=== PATIENT | female | born 1930 | race Caucasian/White ===

== ENCOUNTER → 2016-10-10 | Outpatient (CLI) | payer MEDICARE, MEDICAID ==
[~2016-10-10] MED LIST: ACTOS 15MG TAB15 MG PO; ACTOS30 MG PO; ALBUTEROL0.83 MG/ML IH; ALDACTONE 25MG25 MG PO; ALDACTONE50 MG PO; ALLEGRA180 MG PO; AMIODARONE200 MG PO; ARICEPT10 MG PO; ARICEPT5 MG PO; ARTANE2 MG PO; ASPIRIN E.C. 8181 MG PO; BENEPROTEIN PO; CALAN SR240 MG PO; CALCITRIOL PO; COLACE 100100 MG/CAP PO; COREG3.125 MG PO; COUMADIN 1MG1 MG/TAB PO; COUMADIN 22.5 MG/TAB PO; COUMADIN 2MG2 MG/TAB PO; COUMADIN 3MG3 MG/TAB PO; COUMADIN1 MG PO; DESYREL 50MG50 MG PO; DESYREL DIVIDO300 MG PO; DESYREL PO; DOXYCYCLINE 10100 MG PO; EPO IV; EXELON PAT4.6 MG/24 TD; FERROUS SU325 MG/TAB PO; FOLIC ACID 11 MG/TA1 PO; FOLIC ACID PO; FOLIC ACID1 MG PO; FUROSEMIDE PO; IMODIUMSUSP PO; INFANTS AQU400 IU/ML; KLOR-CON 1010 MEQ PO; LANTUS100 U/ML SC; LANTUS100 U/ML SQ; LEVAQUIN 5500 MG/TA1 PO; LEVEMIR100 U/ML SQ; LEVOTHYROXINE PO; LORTAB 5/500 501 TAB PO; MEGACE; MEGACE 40MG40 MG/TAB PO; MEGACE40 MG PO; MIRALAX PA17 GM/Dose PO; MUCINEX 60600 MG/TA1 PO; MULTI VITAMINS1 TAB PO; NAMENDA 10MG TA10 MG PO; NAMENDA10 MG PO; NEPHROCAP PO; NEPHROCAPS PO; NEPHROCAPS QT1 ODT PO; NOVOLOG 100U100 U/M1 SQ; PERCOCET 325 MG1 TA2 PO; PHENERGAN25 MG RC; PHOSLO667 MG PO; POTASSIUM CHLO10 ME2 PO; PRILOSEC 20MG20 MG PO; PROAIR HFA0.09 MG/AC IH; REGLAN 5MG T5 MG/TAB PO; RENAL; RENAL MULTIVITA1 TAB PO; RENO CAPS1 SGL PO; SENNA8.6 MG PO; SENSIPAR30 MG PO; SODIUM BICARB PO; STOOL SOFTENER100 MG PO; SYNTHROID 0.10.15 MG PO; SYNTHROID0.075 MG/T PO; SYNTHROID0.125 MG/T; SYNTHROID0.125 MG/T PO; SYNTHROID0.175 MG PO; TESSALON PERLE100 MG PO; TRAZODONE150 MG PO; TRIPLE ANTIBIOTI1 TU TP; TYLENOL 325MG325 MG PO; TYLENOL 500MG500 MG PO; TYLENOL W/COD1 UDTAB PO; ULTRAM 50MG TAB50 MG PO; VITAMIN C500 MG PO; ZEMPLAR0.002 MG/M PO; ZEMPLAR1 MCG PO; ZOCOR 20MG20 MG PO; ZYRTEC 10MG10 MG PO; [UNRECOGNIZED DRUG - OTHER] PO; blood pressure med; thyroid
== END ==
LOC: COL.RAD 15:48
DX: J18.8 Other pneumonia, unspecified organism (principal); R91.8 Other nonspecific abnormal finding of lung field

== ENCOUNTER 2016-11-01 03:13 | Inpatient (IN) | payer MEDICARE, MEDICAID ==
[~2016-11-01] VITALS: Ht 157.5 cm; Wt 64.2 kg
[~2016-11-01 03:13] MED LIST changes: -ALBUTEROL0.83 MG/ML IH; -COLACE 100100 MG/CAP PO; -COUMADIN 22.5 MG/TAB PO; -COUMADIN 3MG3 MG/TAB PO; -DOXYCYCLINE 10100 MG PO; -IMODIUMSUSP PO; -LEVEMIR100 U/ML SQ; -MIRALAX PA17 GM/Dose PO; -MUCINEX 60600 MG/TA1 PO; -NOVOLOG 100U100 U/M1 SQ; -PHENERGAN25 MG RC; -PROAIR HFA0.09 MG/AC IH; -RENAL; -SENNA8.6 MG PO; -TYLENOL W/COD1 UDTAB PO
[2016-11-01 03:51] LABS: BASO # 0.1 (0.0-0.2); BASO % 0.6 % (0.0-2.0); EOS # 0.2 (0.0-0.7); GRAN # 6.1 (1.4-6.5); GRAN % 72.1 % (42.2-75.2); LYMPH # 1.1 (1.2-3.4); LYMPH % 12.9 % (20.0-51.0); MEAN CELL VOLUME 93 fl (80.0-100.0); MEAN CORPUSCULAR HGB CONC 33 g/dl (33.0-37.0); MEAN PLATELET VOLUME 10.7 fl (7.4-10.4); MONO % 11.7 % (1.7-9.3); PLATELET COUNT 100 K/mm3 (130-400); RED BLOOD COUNT 3.69 M/mm3 (4.10-5.30); WHITE BLOOD COUNT 8.5 K/mm3 (4.8-10.8)
[2016-11-01 03:52] LABS: HEMATOCRIT 34.4 % (37.0-47.0); HEMOGLOBIN 11.2 g/dl (12.5-16.0); MEAN CORPUSCULAR HEMOGLOBIN 30 pg (27.0-31.0)
[2016-11-01] MEDS ORDERED: PROAIR HFA0.09 MG/AC IH (03:54)
[2016-11-01] MEDS ORDERED: RENAL (03:56)
[2016-11-01] MEDS ORDERED: DESYREL 50MG50 MG PO (04:00)
[2016-11-01 04:01] LABS: ADJUSTED CALCIUM 9.4 mg/dL (8.4-10.2); ALBUMIN 3.9 gm/dL (3.5-5.0); BILIRUBIN,TOTAL 1.2 mg/dL (0.0-1.0); CALCIUM 9.3 mg/dL (8.4-10.2); CREATININE, serum 2.97 mg/dL (0.52-1.25); POTASSIUM 4.1 mmol/L (3.4-5.0); TOTAL PROTEIN 7.4 gm/dL (6.4-8.2)
[2016-11-01 04:16] LABS: TROPONIN-I 0.07 ng/mL (0.000-0.034)
[2016-11-01 04:58] LABS: PH 8 (5-8); URINE APPEARANCE Cloudy; URINE COLOR Yellow
[2016-11-01 04:59] LABS: URINE BILIRUBIN Positive (NEGATIVE); URINE BLOOD 1+ (NEGATIVE); URINE GLUCOSE Negative (NEGATIVE); URINE KETONE Negative (NEGATIVE); URINE UROBILINOGEN Negative (NEGATIVE)
[2016-11-01 05:01] LABS: SQUAMOUS EPITHELIAL 0-2 /hpf; URINE BACTERIA Occasional /hpf
[2016-11-01 05:34] LABS: INR 1.9 (0.8-3.0); PROTHROMBIN TIME 21.5 SECONDS (9.7-12.8)
[2016-11-01 05:37] LABS: PARTIAL THROMBOPLASTIN TIME 43.9 SECONDS (26.0-37.0)
[2016-11-01 08:33] VITALS: BP 111/45; PULSE 65; TEMP 98
[2016-11-01 11:09] VITALS: BP 103/43; PULSE 77; TEMP 98
[2016-11-01 11:11] VITALS: BP 103/43; PULSE 71; TEMP 98
[2016-11-01 20:07] VITALS: BP 98/44; PULSE 79; TEMP 98.7
[2016-11-01 23:27] VITALS: BP 101/50; PULSE 79; TEMP 98.2
[2016-11-02 03:56] VITALS: BP 100/42; PULSE 83; TEMP 98.3
[2016-11-02 08:00] VITALS: BP 116/54; BP 88/41; PULSE 77; TEMP 97.8
[2016-11-02 11:49] VITALS: BP 101/50; PULSE 71; TEMP 97.4
== END 2016-11-02 21:05 | DRG 640 ==
LOC: COL.ER 03:13 → MEDICAL 06:49
PROVIDERS: Emergency Medicine
PROC: 5A1D60Z (ICD-10-PCS; principal; 2016-11-01)
DX: E87.70 Fluid overload, unspecified (principal); N18.6 End stage renal disease; I12.0 Hypertensive chronic kidney disease with stage 5 chronic kidney disease or end stage renal disease; E11.22 Type 2 diabetes mellitus with diabetic chronic kidney disease; D63.1 Anemia in chronic kidney disease; F03.90 Unspecified dementia, unspecified severity, without behavioral disturbance, psychotic disturbance, mood disturbance, and anxiety; S40.021A Contusion of right upper arm, initial encounter; M25.551 Pain in right hip; W19.XXXA Unspecified fall, initial encounter; H70.93 Unspecified mastoiditis, bilateral; Z99.2 Dependence on renal dialysis; Z79.01 Long term (current) use of anticoagulants; Z95.0 Presence of cardiac pacemaker; Z87.891 Personal history of nicotine dependence
CPT/HCPCS: J0696; J1644; J1940

== ENCOUNTER → 2016-11-06 | Outpatient (CLI) | payer MEDICARE, MEDICAID ==
[~2016-11-06] MED LIST changes: +ALBUTEROL0.83 MG/ML IH; +COLACE 100100 MG/CAP PO; +COUMADIN 22.5 MG/TAB PO; +COUMADIN 3MG3 MG/TAB PO; +DOXYCYCLINE 10100 MG PO; +IMODIUMSUSP PO; +LEVEMIR100 U/ML SQ; +MIRALAX PA17 GM/Dose PO; +MUCINEX 60600 MG/TA1 PO; +NOVOLOG 100U100 U/M1 SQ; +PHENERGAN25 MG RC; +PROAIR HFA0.09 MG/AC IH; +RENAL; +SENNA8.6 MG PO; +TYLENOL W/COD1 UDTAB PO
[2016-11-06 15:41] LABS: ADJUSTED CALCIUM 9.4 mg/dL (8.4-10.2); ALBUMIN 3.7 gm/dL (3.5-5.0); CALCIUM 9.2 mg/dL (8.4-10.2); CREATININE, serum 3.65 mg/dL (0.52-1.25); POTASSIUM 4.9 mmol/L (3.4-5.0)
== END ==
LOC: ZLAB.STJ 15:12 → ZCOL.LAB 15:12
PROVIDERS: Internal Medicine
DX: I10 Essential (primary) hypertension (principal); E11.9 Type 2 diabetes mellitus without complications; E03.4 Atrophy of thyroid (acquired)

== ENCOUNTER → 2016-11-14 | Outpatient (CLI) | payer MEDICARE, MEDICAID | LOC: ZLAB.STJ 16:14 | DX: I48.91 Unspecified atrial fibrillation (principal); Z86.718 Personal history of other venous thrombosis and embolism ==

== ENCOUNTER → 2016-11-26 | Outpatient (CLI) | payer MEDICARE, MEDICAID ==
[2016-11-26 14:44] LABS: INR 2.8 (0.8-3.0); PROTHROMBIN TIME 31.9 SECONDS (9.7-12.8)
== END ==
LOC: ZLAB.STJ 14:09
PROVIDERS: Internal Medicine
DX: Z79.01 Long term (current) use of anticoagulants (principal)

== ENCOUNTER → 2016-11-28 | Outpatient (CLI) | payer MEDICARE, MEDICAID ==
[2016-11-28 15:34] LABS: INR 2.3 (0.8-3.0); PROTHROMBIN TIME 26.1 SECONDS (9.7-12.8)
== END ==
LOC: ZLAB.STJ 15:28
PROVIDERS: Internal Medicine Nephrology
DX: Z79.01 Long term (current) use of anticoagulants (principal)

== ENCOUNTER → 2016-12-20 | Outpatient (CLI) | payer MEDICARE, MEDICAID | LOC: ZLAB.STJ 11:50 | DX: E03.8 Other specified hypothyroidism (principal) ==

== ENCOUNTER 2017-01-23 09:10 | Inpatient (IN) | payer MEDICARE, MEDICAID ==
[~2017-01-23] VITALS: Wt 62.8 kg
[~2017-01-23 09:10] MED LIST changes: -ALBUTEROL0.83 MG/ML IH; -COLACE 100100 MG/CAP PO; -COUMADIN 22.5 MG/TAB PO; -COUMADIN 3MG3 MG/TAB PO; -DOXYCYCLINE 10100 MG PO; -IMODIUMSUSP PO; -LEVEMIR100 U/ML SQ; -MIRALAX PA17 GM/Dose PO; -MUCINEX 60600 MG/TA1 PO; -NOVOLOG 100U100 U/M1 SQ; -PHENERGAN25 MG RC; -SENNA8.6 MG PO; -TYLENOL W/COD1 UDTAB PO
[2017-01-23 10:17] LABS: INR 1.4 (0.8-3.0); PROTHROMBIN TIME 15.5 SECONDS (9.7-12.8)
[2017-01-23 10:31] LABS: ADJUSTED CALCIUM 9.1 mg/dL (8.4-10.2); ALBUMIN 3.9 gm/dL (3.5-5.0); BILIRUBIN,TOTAL 1.2 mg/dL (0.0-1.0); MAGNESIUM 1.9 mg/dL (1.6-2.3); PHOSPHOROUS 4.9 mg/dL (2.5-4.5); POTASSIUM 4.8 mmol/L (3.4-5.0); TOTAL PROTEIN 7.5 gm/dL (6.4-8.2)
[2017-01-23 10:36] LABS: CREATININE, serum 4.84 mg/dL (0.52-1.25)
[2017-01-23] MEDS ORDERED: COLACE 100100 MG/CAP PO (10:39)
[2017-01-23] MEDS ORDERED: SENNA8.6 MG PO (10:40)
[2017-01-23 10:42] LABS: BASO # 0.1 (0.0-0.2); BASO % 0.5 % (0.0-2.0); EOS # 0.1 (0.0-0.7); EOS % 0.5 % (0-4.0); GRAN # 9.7 (1.4-6.5); GRAN % 84.7 % (42.2-75.2); LYMPH # 0.6 (1.2-3.4); LYMPH % 5.3 % (20.0-51.0); MEAN CELL VOLUME 95 fl (80.0-100.0); MEAN CORPUSCULAR HGB CONC 32 g/dl (33.0-37.0); MEAN PLATELET VOLUME 10.5 fl (7.4-10.4); MONO % 8.6 % (1.7-9.3); PLATELET COUNT 189 K/mm3 (130-400); RED BLOOD COUNT 3.69 M/mm3 (4.10-5.30); REDCELL DISTRIBUTION WIDTH-CV 15.1 % (11.5-14.5); WHITE BLOOD COUNT 11.4 K/mm3 (4.8-10.8)
[2017-01-23 10:43] LABS: HEMATOCRIT 34.9 % (37.0-47.0); HEMOGLOBIN 11.3 g/dl (12.5-16.0); MEAN CORPUSCULAR HEMOGLOBIN 31 pg (27.0-31.0)
[2017-01-23] MEDS ORDERED: MUCINEX 60600 MG/TA1 PO (10:44)
[2017-01-23] MEDS ORDERED: TYLENOL 325MG325 MG PO (10:45)
[2017-01-23 10:46] LABS: TROPONIN-I 0.052 ng/mL (0.000-0.034)
[2017-01-23] MEDS ORDERED: MIRALAX PA17 GM/Dose PO (10:46)
[2017-01-23] MEDS ORDERED: TYLENOL W/COD1 UDTAB PO (12:06)
[2017-01-23 17:01] VITALS: BP 122/46; PULSE 81; TEMP 97.6
[2017-01-23 19:19] VITALS: BP 119/37; PULSE 84; TEMP 97.5
[2017-01-24 00:21] VITALS: BP 99/47; PULSE 61; TEMP 97.4
[2017-01-24 03:47] VITALS: BP 103/71; PULSE 65; TEMP 97.4
[2017-01-24 07:36] LABS: BASO # 0.1 (0.0-0.2); BASO % 0.8 % (0.0-2.0); EOS # 0.1 (0.0-0.7); EOS % 1.8 % (0-4.0); GRAN # 4.1 (1.4-6.5); GRAN % 69.4 % (42.2-75.2); LYMPH # 0.9 (1.2-3.4); LYMPH % 14.8 % (20.0-51.0); MEAN CELL VOLUME 94 fl (80.0-100.0); MEAN CORPUSCULAR HGB CONC 32 g/dl (33.0-37.0); MEAN PLATELET VOLUME 10.7 fl (7.4-10.4); MONO # 0.8 (0.1-0.6); MONO % 12.9 % (1.7-9.3); PLATELET COUNT 146 K/mm3 (130-400); RED BLOOD COUNT 3.41 M/mm3 (4.10-5.30)
[2017-01-24 07:46] LABS: CALCIUM 8.9 mg/dL (8.4-10.2); CREATININE, serum 3.27 mg/dL (0.52-1.25); POTASSIUM 4.1 mmol/L (3.4-5.0)
[2017-01-24 08:09] LABS: HEMATOCRIT 32.2 % (37.0-47.0); HEMOGLOBIN 10.4 g/dl (12.5-16.0); MEAN CORPUSCULAR HEMOGLOBIN 30 pg (27.0-31.0)
[2017-01-24 08:22] VITALS: BP 118/51; PULSE 60; TEMP 98.1
[2017-01-24 12:41] VITALS: BP 114/41; PULSE 77; TEMP 98.2
[2017-01-24 17:47] VITALS: BP 102/51; PULSE 65; TEMP 97.2
[2017-01-24 21:50] VITALS: BP 117/45; PULSE 76; TEMP 98
[2017-01-25 00:28] VITALS: BP 114/47; PULSE 68; TEMP 97.9
[2017-01-25 04:41] VITALS: BP 114/51; PULSE 82; TEMP 97.5
[2017-01-25 08:05] LABS: PROTHROMBIN TIME 22.6 SECONDS (9.7-12.8)
[2017-01-25 08:06] LABS: BASO % 0.8 % (0.0-2.0); EOS # 0.1 (0.0-0.7); EOS % 2.2 % (0-4.0); GRAN # 3.2 (1.4-6.5); GRAN % 65.2 % (42.2-75.2); LYMPH # 0.8 (1.2-3.4); LYMPH % 15.5 % (20.0-51.0); MEAN CELL VOLUME 97 fl (80.0-100.0); MEAN CORPUSCULAR HGB CONC 32 g/dl (33.0-37.0); MEAN PLATELET VOLUME 10.5 fl (7.4-10.4); MONO # 0.8 (0.1-0.6); MONO % 15.9 % (1.7-9.3); PLATELET COUNT 131 K/mm3 (130-400); RED BLOOD COUNT 3.24 M/mm3 (4.10-5.30); REDCELL DISTRIBUTION WIDTH-CV 14.7 % (11.5-14.5); WHITE BLOOD COUNT 4.9 K/mm3 (4.8-10.8)
[2017-01-25 08:12] LABS: HEMATOCRIT 31.4 % (37.0-47.0); HEMOGLOBIN 9.9 g/dl (12.5-16.0); MEAN CORPUSCULAR HEMOGLOBIN 31 pg (27.0-31.0)
[2017-01-25 08:20] LABS: CALCIUM 8.8 mg/dL (8.4-10.2); CREATININE, serum 2.8 mg/dL (0.52-1.25)
[2017-01-25 08:26] VITALS: BP 120/41; PULSE 66; TEMP 97.6
[2017-01-25 12:13] VITALS: BP 120/41; PULSE 66; TEMP 97.6
== END 2017-01-25 15:13 | DRG 640 ==
LOC: COL.ER 09:10 → MEDICAL 10:56
PROVIDERS: Family Medicine; Internal Medicine
PROC: 5A1D60Z (ICD-10-PCS; principal; 2017-01-23)
DX: E87.70 Fluid overload, unspecified (principal); N18.6 End stage renal disease; I12.0 Hypertensive chronic kidney disease with stage 5 chronic kidney disease or end stage renal disease; E44.0 Moderate protein-calorie malnutrition; E11.22 Type 2 diabetes mellitus with diabetic chronic kidney disease; D63.1 Anemia in chronic kidney disease; I48.91 Unspecified atrial fibrillation; F03.90 Unspecified dementia, unspecified severity, without behavioral disturbance, psychotic disturbance, mood disturbance, and anxiety; M25.562 Pain in left knee; Z95.0 Presence of cardiac pacemaker; Z87.891 Personal history of nicotine dependence; Z79.01 Long term (current) use of anticoagulants

== ENCOUNTER 2017-01-25 21:25 | Emergency (ER) | payer MEDICARE, MEDICAID ==
[2009-04-18 05:46] VITALS: BP 140/62
[~2017-01-25] VITALS: Ht 157.5 cm; Wt 70.5 kg
[~2017-01-25 21:25] MED LIST changes: +COLACE 100100 MG/CAP PO; +MIRALAX PA17 GM/Dose PO; +MUCINEX 60600 MG/TA1 PO; +SENNA8.6 MG PO; +TYLENOL W/COD1 UDTAB PO
[2017-01-25 21:26] VITALS: BP 117/60; PULSE 82; TEMP 98.3
== END 2017-01-26 00:01 | disposition home or self-care (01) ==
LOC: COL.ER 21:25
DX: M25.551 Pain in right hip (principal); S09.90XA Unspecified injury of head, initial encounter; Z96.641 Presence of right artificial hip joint; S20.312A Abrasion of left front wall of thorax, initial encounter; Z79.01 Long term (current) use of anticoagulants; F03.90 Unspecified dementia, unspecified severity, without behavioral disturbance, psychotic disturbance, mood disturbance, and anxiety; W06.XXXA Fall from bed, initial encounter; Y92.122 Bedroom in nursing home as the place of occurrence of the external cause; Z66 Do not resuscitate; E11.22 Type 2 diabetes mellitus with diabetic chronic kidney disease; I12.0 Hypertensive chronic kidney disease with stage 5 chronic kidney disease or end stage renal disease; N18.6 End stage renal disease; I48.91 Unspecified atrial fibrillation; Z87.891 Personal history of nicotine dependence

== ENCOUNTER 2017-01-30 15:55 | Emergency (ER) | payer MEDICARE, MEDICAID ==
[2009-04-18 05:46] VITALS: BP 140/62
[~2017-01-30] VITALS: Ht 165.1 cm; Wt 68.2 kg
[2017-01-30 15:56] VITALS: TEMP 97.3
[2017-01-30 16:40] LABS: BASO % 0.5 % (0.0-2.0); EOS # 0.1 (0.0-0.7); EOS % 0.8 % (0-4.0); GRAN # 4.3 (1.4-6.5); GRAN % 71.6 % (42.2-75.2); LYMPH # 0.7 (1.2-3.4); LYMPH % 12.3 % (20.0-51.0); MEAN CELL VOLUME 93 fl (80.0-100.0); MEAN CORPUSCULAR HGB CONC 33 g/dl (33.0-37.0); MONO # 0.9 (0.1-0.6); MONO % 14.5 % (1.7-9.3); PLATELET COUNT 166 K/mm3 (130-400); RED BLOOD COUNT 3.49 M/mm3 (4.10-5.30); REDCELL DISTRIBUTION WIDTH-CV 14.1 % (11.5-14.5); WHITE BLOOD COUNT 5.9 K/mm3 (4.8-10.8)
[2017-01-30 16:41] LABS: PROTHROMBIN TIME 34.3 SECONDS (9.7-12.8)
[2017-01-30] MEDS ORDERED: COUMADIN 3MG3 MG/TAB PO (16:45)
[2017-01-30] MEDS ORDERED: COLACE 100100 MG/CAP PO (16:46)
[2017-01-30 16:48] LABS: HEMATOCRIT 32.6 % (37.0-47.0); HEMOGLOBIN 10.7 g/dl (12.5-16.0); MEAN CORPUSCULAR HEMOGLOBIN 31 pg (27.0-31.0)
[2017-01-30 17:25] VITALS: BP 129/58; PULSE 72
== END 2017-01-30 17:25 | disposition home or self-care (01) ==
LOC: COL.ER 15:55
PROVIDERS: Family Medicine
DX: T82.838A Hemorrhage due to vascular prosthetic devices, implants and grafts, initial encounter (principal); N18.6 End stage renal disease; Z99.2 Dependence on renal dialysis; H91.90 Unspecified hearing loss, unspecified ear; Z79.01 Long term (current) use of anticoagulants; M25.462 Effusion, left knee

== ENCOUNTER 2017-03-07 09:37 | Outpatient (CLI) | payer MEDICARE, MEDICAID ==
[2009-04-18 05:46] VITALS: BP 140/62
[~2017-03-07] VITALS: Ht 157.5 cm; Wt 72.0 kg
[2017-03-07] VITALS (9 sets, daily range): BP systolic 95–118; BP diastolic 45–61; PULSE 60–76; TEMP 98.5
[~2017-03-07 09:37] MED LIST changes: +COUMADIN 3MG3 MG/TAB PO
[2017-03-07] MEDS ORDERED: COUMADIN 22.5 MG/TAB PO (12:04)
[2017-03-07] MEDS ORDERED: ALBUTEROL0.83 MG/ML IH (12:10)
[2017-03-07] MEDS ORDERED: IMODIUMSUSP PO (12:11)
[2017-03-07] MEDS ORDERED: PHENERGAN25 MG RC (12:12)
[2017-03-07] MEDS ORDERED: NOVOLOG 100U100 U/M1 SQ (12:16)
[2017-03-07 12:17] LABS: INR 1.2 (0.8-3.0); PROTHROMBIN TIME 13.6 SECONDS (9.7-12.8)
[2017-03-07] MEDS ORDERED: LEVEMIR100 U/ML SQ (12:17)
== END 2017-03-07 17:33 | disposition home or self-care (01) ==
LOC: COL.CAR 09:37
PROVIDERS: Radiology Diagnostic Radiology
DX: T82.858A Stenosis of other vascular prosthetic devices, implants and grafts, initial encounter (principal); T82.838A Hemorrhage due to vascular prosthetic devices, implants and grafts, initial encounter; G20 Parkinson's disease; F02.80 Dementia in other diseases classified elsewhere, unspecified severity, without behavioral disturbance, psychotic disturbance, mood disturbance, and anxiety; E11.22 Type 2 diabetes mellitus with diabetic chronic kidney disease; N18.6 End stage renal disease; Z99.2 Dependence on renal dialysis
CPT/HCPCS: C1725; J1644; J7120; Q9967

== ENCOUNTER → 2017-03-22 | Outpatient (REF) ==
[~2017-03-22] MED LIST changes: +ALBUTEROL0.83 MG/ML IH; +COUMADIN 22.5 MG/TAB PO; +DOXYCYCLINE 10100 MG PO; +IMODIUMSUSP PO; +LEVEMIR100 U/ML SQ; +NOVOLOG 100U100 U/M1 SQ; +PHENERGAN25 MG RC
== END ==
LOC: ZLAB.STJ 14:12
DX: Z01.89 Encounter for other specified special examinations (principal)

== ENCOUNTER 2017-04-07 15:10 | Emergency (ER) | payer MEDICARE, MEDICAID ==
[2009-04-18 05:46] VITALS: BP 140/62
[~2017-04-07] VITALS: Ht 162.6 cm; Wt 61.8 kg
[~2017-04-07 15:10] MED LIST changes: -DOXYCYCLINE 10100 MG PO
[2017-04-07 15:13] VITALS: TEMP 98.1
[2017-04-07 16:20] LABS: BASO % 0.5 % (0.0-2.0); EOS # 0.1 (0.0-0.7); EOS % 1.9 % (0-4.0); GRAN # 5.3 (1.4-6.5); GRAN % 71.4 % (42.2-75.2); LYMPH # 0.6 (1.2-3.4); LYMPH % 8.6 % (20.0-51.0); MEAN CELL VOLUME 94 fl (80.0-100.0); MEAN CORPUSCULAR HGB CONC 33 g/dl (33.0-37.0); MEAN PLATELET VOLUME 10.5 fl (7.4-10.4); MONO # 1.3 (0.1-0.6); MONO % 17.2 % (1.7-9.3); PLATELET COUNT 149 K/mm3 (130-400); RED BLOOD COUNT 2.86 M/mm3 (4.10-5.30); REDCELL DISTRIBUTION WIDTH-CV 14.8 % (11.5-14.5); WHITE BLOOD COUNT 7.4 K/mm3 (4.8-10.8)
[2017-04-07 16:26] LABS: HEMOGLOBIN 8.8 g/dl (12.5-16.0); MEAN CORPUSCULAR HEMOGLOBIN 31 pg (27.0-31.0)
[2017-04-07 16:27] LABS: C-REACTIVE PROTEIN 4.1 mg/dL (0.0-0.9); CALCIUM 8.7 mg/dL (8.4-10.2); PHOSPHOROUS 4.9 mg/dL (2.5-4.5); POTASSIUM 4.3 mmol/L (3.4-5.0)
[2017-04-07 16:29] LABS: CREATININE, serum 4.02 mg/dL (0.52-1.25)
[2017-04-07 16:58] VITALS: BP 111/49
[2017-04-07] MEDS ORDERED: DOXYCYCLINE 10100 MG PO (17:37)
[2017-04-07 17:48] VITALS: PULSE 72
== END 2017-04-07 17:58 | disposition home or self-care (01) ==
LOC: COL.ER 15:10
PROVIDERS: Emergency Medicine
DX: M13.872 Other specified arthritis, left ankle and foot (principal); D53.9 Nutritional anemia, unspecified; I13.2 Hypertensive heart and chronic kidney disease with heart failure and with stage 5 chronic kidney disease, or end stage renal disease; I50.9 Heart failure, unspecified; E11.22 Type 2 diabetes mellitus with diabetic chronic kidney disease; N18.6 End stage renal disease; M19.90 Unspecified osteoarthritis, unspecified site; E03.9 Hypothyroidism, unspecified; K75.9 Inflammatory liver disease, unspecified; F32.9 Major depressive disorder, single episode, unspecified; Z79.01 Long term (current) use of anticoagulants; Z79.4 Long term (current) use of insulin; Z90.49 Acquired absence of other specified parts of digestive tract; Z90.710 Acquired absence of both cervix and uterus; Z90.13 Acquired absence of bilateral breasts and nipples; Z96.641 Presence of right artificial hip joint; Z99.2 Dependence on renal dialysis; Z95.0 Presence of cardiac pacemaker; Z87.891 Personal history of nicotine dependence; Z98.890 Other specified postprocedural states

== ENCOUNTER → 2017-04-25 | Outpatient (CLI) | payer MEDICARE, MEDICAID ==
[~2017-04-25] MED LIST changes: +DOXYCYCLINE 10100 MG PO
== END ==
LOC: ZLAB.STJ 10:31
DX: E03.9 Hypothyroidism, unspecified (principal)

== ENCOUNTER → 2017-09-06 | Outpatient (CLI) | payer MEDICARE, MEDICAID ==
[2017-09-06 10:49] LABS: BASO # 0.1 (0.0-0.2); EOS # 0.1 (0.0-0.7); EOS % 1.2 % (0-4.0); GRAN # 4.6 (1.4-6.5); GRAN % 69.5 % (42.2-75.2); LYMPH # 0.8 (1.2-3.4); LYMPH % 11.5 % (20.0-51.0); MEAN CELL VOLUME 93 fl (80.0-100.0); MEAN CORPUSCULAR HGB CONC 33 g/dl (33.0-37.0); MEAN PLATELET VOLUME 11.5 fl (7.4-10.4); MONO # 1.1 (0.1-0.6); MONO % 16.5 % (1.7-9.3); PLATELET COUNT 132 K/mm3 (130-400); RED BLOOD COUNT 3.92 M/mm3 (4.10-5.30); WHITE BLOOD COUNT 6.7 K/mm3 (4.8-10.8)
[2017-09-06 10:50] LABS: HEMATOCRIT 36.3 % (37.0-47.0); HEMOGLOBIN 11.9 g/dl (12.5-16.0); MEAN CORPUSCULAR HEMOGLOBIN 30 pg (27.0-31.0)
[2017-09-06 10:55] LABS: CALCIUM 9.5 mg/dL (8.4-10.2); CREATININE, serum 3.73 mg/dL (0.52-1.25); POTASSIUM 5.1 mmol/L (3.4-5.0)
== END ==
LOC: ZLAB.STJ 09:54
PROVIDERS: Internal Medicine
DX: N18.6 End stage renal disease (principal); E11.9 Type 2 diabetes mellitus without complications

== ENCOUNTER 2017-09-10 10:12 | Outpatient (CLI) | payer MEDICARE, MEDICAID ==
[2009-04-18 05:46] VITALS: BP 140/62
[2017-09-10] VITALS (7 sets, daily range): BP systolic 86–102; BP diastolic 37–44; PULSE 58–69; TEMP 97.9–98
[~2017-09-10] VITALS: Ht 162.7 cm; Wt 62.5 kg
[~2017-09-10 10:12] MED LIST changes: -SYNTHROID0.075 MG/T PO
[2017-09-10] MEDS ORDERED: WHEY PROTEIN IS1 POW PO (12:10)
[2017-09-10] MEDS ORDERED: ALMACONE 360 M360 ML PO (12:12)
[2017-09-10] MEDS ORDERED: QUESTRAN4 GM/9 GM PO (12:14)
[2017-09-10] MEDS ORDERED: ARTIFICIAL TEAR15 M7 OP (12:16)
[2017-09-10] MEDS ORDERED: LEXAPRO 10MG10 MG PO (12:16)
== END 2017-09-10 15:33 | disposition home or self-care (01) ==
LOC: COL.CAR 10:12
DX: T82.838A Hemorrhage due to vascular prosthetic devices, implants and grafts, initial encounter (principal); E11.22 Type 2 diabetes mellitus with diabetic chronic kidney disease; N18.6 End stage renal disease; Z99.2 Dependence on renal dialysis; Z79.4 Long term (current) use of insulin
CPT/HCPCS: J2250; J3010; Q9967

== ENCOUNTER 2017-10-17 13:35 | Inpatient (IN) | payer MEDICARE, MEDICAID ==
[~2017-10-17] VITALS: Ht 157.5 cm; Wt 69.4 kg
[~2017-10-17 13:35] MED LIST changes: +ALMACONE 360 M360 ML PO; +ARTIFICIAL TEAR15 M7 OP; +LEXAPRO 10MG10 MG PO; +QUESTRAN4 GM/9 GM PO; +WHEY PROTEIN IS1 POW PO
[2017-10-17] MEDS ORDERED: IMODIUMSUSP PO (14:19)
[2017-10-17] MEDS ORDERED: TAMIFLU30 MG PO (14:23)
[2017-10-17] MEDS ORDERED: NEPRO CARB STEADY PO (14:25)
[2017-10-17 14:41] LABS: BASO % 0.6 % (0.0-2.0); EOS # 0.1 (0.0-0.7); GRAN % 69.9 % (42.2-75.2); LYMPH # 1.2 (1.2-3.4); LYMPH % 16.3 % (20.0-51.0); MEAN CELL VOLUME 98 fl (80.0-100.0); MEAN CORPUSCULAR HGB CONC 32 g/dl (33.0-37.0); MEAN PLATELET VOLUME 11.8 fl (7.4-10.4); MONO # 0.9 (0.1-0.6); MONO % 11.9 % (1.7-9.3); PLATELET COUNT 115 K/mm3 (130-400); RED BLOOD COUNT 3.68 M/mm3 (4.10-5.30); REDCELL DISTRIBUTION WIDTH-CV 15.9 % (11.5-14.5)
[2017-10-17 14:42] LABS: HEMOGLOBIN 11.4 g/dl (12.5-16.0); MEAN CORPUSCULAR HEMOGLOBIN 31 pg (27.0-31.0)
[2017-10-17 15:07] LABS: INR 1.2 (0.8-3.0); PROTHROMBIN TIME 13.8 SECONDS (9.7-12.8)
[2017-10-17 15:12] LABS: ALBUMIN 3.7 gm/dL (3.5-5.0); BILIRUBIN,TOTAL 0.7 mg/dL (0.0-1.0); CALCIUM 8.5 mg/dL (8.4-10.2); CREATININE, serum 2.71 mg/dL (0.52-1.25); POTASSIUM 3.1 mmol/L (3.4-5.0); TOTAL PROTEIN 7.2 gm/dL (6.4-8.2)
[2017-10-17 15:35] LABS: TROPONIN-I 0.094 ng/mL (0.000-0.034)
[2017-10-17 17:19] VITALS: BP 93/36; PULSE 51; TEMP 97.6
[2017-10-17 23:19] VITALS: BP 85/33; PULSE 61; TEMP 98.5
[2017-10-18 04:29] VITALS: BP 93/35; PULSE 69
[2017-10-18 06:46] LABS: BASO % 0.3 % (0.0-2.0); EOS # 0.1 (0.0-0.7); EOS % 0.9 % (0-4.0); GRAN # 5.5 (1.4-6.5); GRAN % 77.9 % (42.2-75.2); LYMPH # 0.7 (1.2-3.4); LYMPH % 9.8 % (20.0-51.0); MEAN CELL VOLUME 97 fl (80.0-100.0); MEAN CORPUSCULAR HGB CONC 32 g/dl (33.0-37.0); MEAN PLATELET VOLUME 10.7 fl (7.4-10.4); MONO # 0.8 (0.1-0.6); MONO % 10.8 % (1.7-9.3); PLATELET COUNT 120 K/mm3 (130-400); RED BLOOD COUNT 2.91 M/mm3 (4.10-5.30); REDCELL DISTRIBUTION WIDTH-CV 15.6 % (11.5-14.5)
[2017-10-18 06:54] LABS: HEMATOCRIT 28.1 % (37.0-47.0); MEAN CORPUSCULAR HEMOGLOBIN 31 pg (27.0-31.0)
[2017-10-18 06:59] LABS: CALCIUM 8.7 mg/dL (8.4-10.2); CREATININE, serum 2.27 mg/dL (0.52-1.25); POTASSIUM 3.7 mmol/L (3.4-5.0)
[2017-10-18 07:26] LABS: TROPONIN-I 0.091 ng/mL (0.000-0.034)
[2017-10-18 07:56] VITALS: BP 102/37; PULSE 65
[2017-10-18 11:50] VITALS: BP 112/40; PULSE 57; TEMP 98.5
[2017-10-18 15:24] VITALS: BP 111/40; PULSE 68
[2017-10-19] MEDS ORDERED: ATIVAN 2MG/ML2 MG/ML SQ (10:32)
[2017-10-19] MEDS ORDERED: LIDODERM 5% PATC1 EA TP (10:32)
[2017-10-19] MEDS ORDERED: ROXANOL 20MG20 MG/ML SL (10:32)
[2017-10-19] MEDS ORDERED: TRANSDERM-0.5 MG/21 TD (10:32)
[2017-10-19 10:38] VITALS: BP 111/40; PULSE 68; TEMP 98.5
== END 2017-10-19 11:32 | disposition hospice, home (50) | DRG 640 ==
LOC: COL.ER 13:35 → MEDICAL 16:33
PROVIDERS: Emergency Medicine; Internal Medicine
PROC: 5A1D70Z Performance of Urinary Filtration, Intermittent, Less than 6 Hours Per Day (ICD-10-PCS; principal; 2017-10-17)
DX: E87.70 Fluid overload, unspecified (principal); N18.6 End stage renal disease; I12.0 Hypertensive chronic kidney disease with stage 5 chronic kidney disease or end stage renal disease; E87.6 Hypokalemia; Z51.5 Encounter for palliative care; F03.90 Unspecified dementia, unspecified severity, without behavioral disturbance, psychotic disturbance, mood disturbance, and anxiety; D64.9 Anemia, unspecified; Z99.2 Dependence on renal dialysis; E11.649 Type 2 diabetes mellitus with hypoglycemia without coma; E11.22 Type 2 diabetes mellitus with diabetic chronic kidney disease; D63.1 Anemia in chronic kidney disease; Z95.0 Presence of cardiac pacemaker; Z87.891 Personal history of nicotine dependence
CPT/HCPCS: J1650; J3480; P9047